=== PATIENT | female | born 1985 | race Caucasian/White ===

== ENCOUNTER 2016-08-31 17:28 | Emergency (ER) | payer OTHER ==
[~2016-08-31] VITALS: Ht 147.3 cm; Wt 59.0 kg
[2016-08-31 17:35] VITALS: BP 120/75
[2016-08-31] MEDS ORDERED: AMOX875T PO (18:17)
[2016-08-31] MEDS ORDERED: HYDR-971 PO (18:17)
--- NOTE | 2016-08-31 18:19 | PHYS DOC ---
General Chief Complaint: DENTAL PROBLEM Stated Complaint: DENTAL PAIN Time Seen by MD: 18:05 Source: patient, old records Exam Limitations: no limitations Problems: History of Present Illness Initial Comments Pt is 30/F to ED c/o dental pain left lower molar. Pt was seen here 2014 for same problem, says she became and after delivery tooth wasn't bothering her. Past few days increasing pain, noticed pus drainage today. No jawbone pain, no fever/chills/myalgias/fatigue/n/v. OTC not helping, states she has appt scheduled 3 days with dentist. Still smoking cigarettes. Timing/Duration: last week Severity: severe Location: dental Prearrival Treatment: over the counter meds Modifying Factors: improves with other Associated Symptoms: tooth pain Allergies: Coded Allergies: No Known Drug Allergies (Unverified , 04/05/15) Past Medical History Medical History: no pertinent history Surgical History: noncontributory Social History Smoker: cigarettes Alcohol: occasionally Drugs: none Constitutional: denies chills, denies diaphoresis, denies fever, denies malaise Ears: denies dizziness, denies pain, denies tinnitus Nose: denies clots, denies congestion Mouth: see HPI Throat: denies pain, denies swelling, denies neck stiffness Respiratory: denies cough, denies shortness of breath Cardiovascular: denies chest pain, denies palpitations Gastrointestinal: denies nausea, denies vomiting Neurological: denies headache, denies numbness, denies paresthesia Physical Exam General Appearance: WD/WN, no apparent distress Eyes: bilateral eye normal inspection, bilateral eye PERRL, bilateral eye EOMI Nose: normal inspection Mouth/Throat: other (L lower molar caries with mild gingival swelling/erythema no bony TTP/purulence) Neck: supple, trachea midline Cardiovascular/Respiratory: normal peripheral pulses, no respiratory distress 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 She expressed agreement/ understanding. Advised to stop smoking Departure Time of Disposition: 18:17 Disposition: 01 HOME, SELF-CARE Diagnosis: L lower molar dental abscess, tobaccoism Condition: GOOD Patient Instructions: Dental Abscess, Smoking Cessation, Tips For Success Additional Instructions: Stop smoking, seek medical assistance if necessary. Listerine mouthwash gargles three times daily after brushing/flossing. OTC ibuprofen for baseline pain. Rx: amoxicillin, norco 5mg #20 Take meds with food. Follow up with dentist in 3 days as previously scheduled. Return to ED with new or changing symptoms. CHARIS VARNER DO August 31, 2016 18:19
[2016-08-31] MEDS ORDERED: HYDROcodone/APAP 7.5/325MG 1 TAB TABLET PO ONE (18:30)
[2016-08-31] MEDS ORDERED: ONDANSETRON ODT 4 MG TAB.RAPDIS PO ONE (18:30)
[2016-08-31] MEDS ORDERED: AMOXICILLIN 500 MG CAPSULE PO ONE (18:30)
== END 2016-08-31 18:35 | disposition home or self-care (01) ==
LOC: ER 17:28
DX: K04.7 Periapical abscess without sinus (principal); F17.210 Nicotine dependence, cigarettes, uncomplicated
CPT/HCPCS: 99284; Q0162

== ENCOUNTER 2016-11-19 16:27 | Emergency (ER) | payer OTHER ==
[~2016-11-19 16:27] MED LIST: AMOX875T PO; HYDR-971 PO
[2016-11-19 16:30] VITALS: BP 124/48
--- NOTE | 2016-11-19 17:19 | PHYS DOC ---
General Chief Complaint: FINGER INJURY Stated Complaint: L MIDDLE FINGER PAIN Time Seen by MD: 17:11 Source: patient Exam Limitations: no limitations Problems: History of Present Illness Initial Comments Patient is a 31-year-old female who comes to the ED complaining of a worker's compensation finger injury. Patient states that immediately prior to ED arrival she was at work putting some money away. She says that she accidentally shot the tip of her left middle finger in the door of the safe. The door mechanism did not catch and it opened immediately however the patient has had severe discomfort at the affected finger. No skin breaks, no bleeding no subungual hematoma she denies numbness tingling or weakness. Patient does have some discomfort radiating proximally along the muscles and tendons. Pain is described as sharp and throbbing 10 out of 10 worse with movement relieved somewhat with rest. No pre-arrival treatment patient is normally healthy and denies daily medications. Onset: just prior to arrival Severity: severe Pain/Injury Location: left 3rd finger Method of Injury: direct blow Modifying Factors: improves with cold therapy, improves with immobilization, worse with jarring, worse with movement, improves with rest Allergies: Coded Allergies: No Known Drug Allergies (Unverified , 04/05/15) Past Medical History Medical History: no pertinent history Surgical History: noncontributory Social History Smoker: non-smoker Alcohol: none Drugs: none Review of Systems Constitutional: denies chills, denies fever Respiratory: denies cough, denies shortness of breath Cardiovascular: denies chest pain, denies palpitations, denies syncope Gastrointestinal: denies diarrhea, denies nausea, denies vomiting Genitourinary: denies dysuria, denies frequency, denies hematuria Musculoskeletal: see HPI Skin: see HPI Psychiatric/Neurological: see HPI Physical Exam General Appearance: WD/WN, moderate distress Neck: non-tender, supple Cardiovascular/Respiratory: normal peripheral pulses, no respiratory distress Back: no CVA tenderness, no vertebral tenderness Hand: bone tenderness, ecchymosis, limited ROM, stiffness, swelling (left third finger distal phalanx: Flexeril and extensor tendon complexes are intact as are collateral ligaments. There is no palpable bony deformity there is diffuse tenderness both bony and soft tissue. Bruising is noted to the soft tissues no large subungual hematoma or nail bed injury noted. Extremity is neurovascularly intact.) Neurologic/Tendon: normal sensation, normal motor functions, normal tendon functions, responds to pain, no evidence tendon injury Psychiatric: alert, oriented x 3 Skin: warm/dry (erythema and mild ecchymosis involving the soft tissues of the distal left third phalanx as above) Orders, Labs, Meds Left hand 3 views: No obvious fracture or dislocation noted. Images and her provided by Dr. Welch. Extremity is neurovascularly intact after splint placement. I discussed the treatment plan patient expressed agreement and understanding. Departure Time of Disposition: 17:17 Disposition: HOME, SELF-CARE Diagnosis: contusion left third finger Condition: GOOD Patient Instructions: Crush Injury, Fingers or Toes, [id number], RICE - Routine Care for Injuries, Kvlx-on-[id number] Additional Instructions: Work restriction: No use left hand until cleared by your doctor. RICE, see handout. Wear the metal finger splint except when bathing until cleared by your doctor. [id number] ibuprofen for baseline discomfort. Prescription: [place] 5 mg quantity 10 (take with food for severe breakthrough discomfort). Follow-up with your doctor in 5-7 days for recheck. Follow-up with your employer regarding Worker's Compensation injury. Return to the ED with new or changing symptoms. CHARIS WELCH DO Nov 19, 2016 17:19
[2016-11-19] MEDS: ONDANSETRON ODT 4 MG TAB.RAPDIS PO ONE (17:32)
[2016-11-19] MEDS: HYDROcodone/APAP 7.5/325MG 1 TAB TABLET PO ONE (17:32)
--- NOTE | 2016-11-19 17:44 | RAD ---
Left hand, 3 views, 11/19/2016: History: Hand injury No fracture or dislocation is identified. The soft tissues are unremarkable. IMPRESSION: No acute bony abnormality is detected.
== END 2016-11-19 17:42 | disposition home or self-care (01) ==
LOC: ER 16:27
DX: S60.032A Contusion of left middle finger without damage to nail, initial encounter (principal); W22.8XXA Striking against or struck by other objects, initial encounter; Y93.89 Activity, other specified; Y92.89 Other specified places as the place of occurrence of the external cause; Y99.8 Other external cause status
CPT/HCPCS: 29130; 73130; 99284; Q0162

== ENCOUNTER 2017-01-15 12:28 | Emergency (ER) | payer OTHER ==
[~2017-01-15] VITALS: Ht 147.3 cm; Wt 59.0 kg
[2017-01-15 12:35] VITALS: BP 117/52
--- NOTE | 2017-01-15 12:59 | PHYS DOC ---
Past History Past Medical History: No Pertinent History Past Surgical History: Cholecystectomy, Other Alcohol Use: None Drug Use: None Adult General Chief Complaint Chief Complaint: LACERATION/AVULSION HPI HPI Patient is a 31 year old female who presents with finger laceration. She accidentally cut her left index finger with a serrated knife while working at [employer]. She had difficulty controlling the bleeding. Right hand is dominant. Last tetanus is unknown. Review of Systems Review of Systems Constitutional: Denies fever or chills HENT: Denies nasal congestion or sore throat Respiratory: Denies cough or shortness of breath Cardiovascular: Denies chest pain GI: Denies abdominal pain, nausea, vomiting Musculoskeletal: Denies back pain or joint pain Integument: Reports laceration Neurologic: Denies headache Current Medications Current Medications Current Medications Medications (Trade) Dose Ordered Sig/Rodolfo Start Time Stop Time Status Last Admin Dose Admin Diphtheria/ Tetanus/Acell Pertussis (Boostrix) 0.5 ml ONCE ONCE 01/15/17 13:00 01/15/17 13:01 01/15/17 12:53 0.5 ML Ondansetron HCl (Zofran Odt) 4 mg 1X ONCE 01/15/17 13:00 01/15/17 13:01 01/15/17 12:53 4 MG Allergies Allergies Allergies Coded Allergies Type Severity Reaction Last Updated Verified No Known Drug Allergies 04/05/15 No Physical Exam Physical Exam Constitutional: Well developed, well nourished, no acute distress, non-toxic appearance. HENT: Normocephalic, atraumatic, bilateral external ears normal, oropharynx moist, nose normal. Eyes: conjunctiva normal, no discharge. Cardiovascular: no edema. Lungs & Thorax: no respiratory distress. Abdomen: nondistended. Skin: superficial laceration as below. Extremities: left index finger with 1 cm very superficial flap laceration to radial/palmar aspect of fingertip, hemostatic. cap refill < 2 sec, sensation intact to fingertip. Neurologic: Alert and oriented X 3 EKG EKG [] Radiology/Procedures Radiology/Procedures [] Course & Med Decision Making Course & Med Decision Making Pertinent Labs and Imaging studies reviewed. (See chart for details) The patient presents with finger laceration which is very superficial. Irrigated by RN. Tetanus updated. She felt nauseated after the wound was irrigated so zofran was administered. RN applied glue & dressing. Recommend wound care, follow up with primary care for additional concerns. Discharged home in stable condition. [] Dragon Disclaimer Dragon Disclaimer This chart was dictated in whole or in part using Voice Recognition software in a busy, high-work load, and often noisy Emergency Department environment. It may contain unintended and wholly unrecognized errors or omissions. Laceration Repair Lac Repair Indication: finger laceration Procedure: The patient was placed in the appropriate position and anesthesia was not required. The area was then irrigated by the RN with a copious amount of normal saline. The laceration was repaired using glue. The wound area was then dressed with gauze. Total repaired wound length: 1 cm. The patient tolerated the procedure well. Complications: none. Departure Departure: Impression: Primary Impression: Superficial laceration of hand Disposition: 01 HOME, SELF-CARE Condition: STABLE Referrals: ELIJAH BEAR APRN (PCP) Patient Instructions: Laceration Care, Adult, [id number] Additional Instructions: You were seen in the emergency department today for finger laceration. It was superficial & did not require stitches. Please keep clean & dry. Apply triple antibiotic ointment. Cover with a band aid if desired. Follow up as needed with primary care for additional concerns. CALI WILHELM MD Jan 15, 2017 12:59
[2017-01-15] MEDS ORDERED: ONDANSETRON ODT 4 MG TAB.RAPDIS PO ONE (13:00)
[2017-01-15] MEDS ORDERED: DIPHTH,PERTUSS(ACELL),TET TOX 0.5 ML DISP.SYRIN. VAX IM ONE (13:00)
== END 2017-01-15 13:30 | disposition home or self-care (01) ==
LOC: ER 12:28
DX: S61.211A Laceration without foreign body of left index finger without damage to nail, initial encounter (principal); W26.0XXA Contact with knife, initial encounter; Y93.89 Activity, other specified; Y99.8 Other external cause status; Y92.89 Other specified places as the place of occurrence of the external cause
CPT/HCPCS: 12001; 90471; 90715; 99283; Q0162

== ENCOUNTER 2019-12-01 15:02 | Emergency (ER) | payer MEDICAID, OTHER ==
[~2019-12-01] VITALS: Ht 147.3 cm; Wt 73.0 kg
[~2019-12-01 15:02] MED LIST changes: +HYDR-3165 PO; -HYDR-971 PO
[2019-12-01 15:10] VITALS: BP 154/99
--- NOTE | 2019-12-01 15:52 | PHYS DOC ---
Past History Past Medical History: Other Additional Past Medical Histor: back pain Past Surgical History: Cholecystectomy, Other Additional Past Surgical Histo: D & C Alcohol Use: None Drug Use: None Adult General Chief Complaint Chief Complaint: ABDOMINAL PAIN HPI HPI Patient is a 34-year-old female who presents for abdominal pain. Onset was earlier this morning when her 4-year-old child accidentally kicked her directly on anterior portion of stomach when patient was trying to dress child. Patient reports vague abdominal pain, denies any vaginal discharge, bleeding or other concerning abnormalities. Nonetheless, patient has a history of 2 prior first trimester spontaneous abortions and because of this, presented to our ER for ultrasound because "I just want to make sure everything is okay". She has not had her first OB appointment yet. Patient found out she was within the past 4 weeks via home urine test. First day last menstrual period was November 23, 2019 which would put her approximately 8 weeks Review of Systems Review of Systems Fourteen body systems of review of systems have been reviewed. See HPI for pertinent positives and negative responses, other glez all other systems are negative, non-pertinent or non-contributory Allergies Allergies Allergies Coded Allergies Type Severity Reaction Last Updated Verified No Known Drug Allergies 04/05/15 No Physical Exam Physical Exam Constitutional: Well developed, well nourished, mild distress, non-toxic appearance. HENT: Normocephalic, atraumatic, bilateral external ears normal, oropharynx moist, no oral exudates, nose normal. Eyes: PERRLA, EOMI, conjunctiva normal, no discharge. Neck: Normal range of motion, no tenderness, supple, no stridor. Cardiovascular: Heart rate regular, sinus rhythm, no murmurs rubs or gallops Lungs & Thorax: Bilateral breath sounds clear to auscultation Abdomen: Bowel sounds normal, soft, no tenderness, no masses, no pulsatile masses. Nonsurgical abdomen, no peritoneal signs Skin: Warm, dry, no erythema, no rash. Back: No tenderness, no CVA tenderness. Extremities: No tenderness, no cyanosis, no clubbing, ROM intact, no edema. Neurologic: Alert and oriented X 3, grossly normal motor & sensory function, no focal deficits noted. Psychologic: Affect normal, judgement normal, anxious mood Current Patient Data Vital Signs Vital Signs Date Time Temp Pulse Resp B/P (MAP) Pulse Ox O2 Delivery O2 Flow Rate FiO2 8/4/20 15:10 98.4 116 16 154/99 (117) 99 Room Air Lab Results Laboratory Tests Test 12/01/19 15:47 POC Urine HCG, Qualitative hcg positive (Negative) EKG EKG [] Radiology/Procedures Radiology/Procedures PROCEDURE: OB <14 WKS W/TV Exam: Ultrasound OB less than 14 weeks Indication: , kicked in stomach Technique: Real-time grayscale and color Doppler images of the pelvis were obtained by the department fabrication machine operator. Comparisons: None FINDINGS: Uterus measures 9.5 x 5.1 x 4.8 cm. Within the uterus there is a 4 mm anechoic cystic structure. No pole or yolk sac is identified. Right ovary measures 2.6 x 1.6 x 1.5 cm. Left ovary measures 3.2 x 2.3 x 1.8 cm. Trace free fluid is noted in the pelvis. IMPRESSION: 1. Question possible gestational sac in the endometrium. No yolk sac or pole identified. An intrauterine is not confirmed. Differential considerations include an early IUP versus a failed IUP. Nonvisualized ectopic with single gestational sac is considered unlikely. 2. Normal sonographic appearance of the ovaries bilaterally. 3. Trace free fluid in the pelvis. Electronically signed by: Lydia Guzman MD (12/01/2019 4:23 PM) [id number] Course & Med Decision Making Course & Med Decision Making Well-appearing, self ambulatory patient was seen on immediate ER arrival Vital signs grossly unremarkable, history and physical non-concerning for emergent pathology Bedside ultrasound by myself yielded no heart tones, discussed this finding could be due to her being too early in to appreciate Formal ultrasound ordered and results of early IUP versus failed IUP discussed. Discussed no further work-up or invasive action required in ER setting Patient reports having good PCP follow-up, reports she is able to see ROOM SERVICE RUNNER within upcoming 7 to 14 days, I feel this is appropriate Discussed this may be an acute presentation of more serious pathology and subsequent return precautions were discussed at length with good understanding All questions and concerns addressed prior to ER departure Patient to follow-up with outpatient PCP or ROOM SERVICE RUNNER for likely repeat ultrasound and serum beta-hCG trending Neto Disclaimer Dragon Disclaimer This electronic medical record was generated, in whole or in part, using a voice recognition dictation system. Departure Departure: Impression: Primary Impression: Abdominal pain during in first trimester Disposition: 01 HOME/RESIDENCE PRIOR TO ADM Condition: STABLE Referrals: KATE GOODE MD (PCP) Patient Instructions: Abdominal Pain During Additional Instructions: As discussed prior to ER departure, please follow-up with your PCP or ROOM SERVICE RUNNER regarding ultrasound results and to follow beta-hCG levels obtained today Your evaluation was not suggestive of any emergent condition requiring medical intervention at this time. However, some abdominal problems make take more time to appear. Therefore, it is important for you to watch for any new symptoms or worsening of your current condition. Please follow up with your primary care physician as needed. If you do not have a primary doctor, you can call your insurance company to find one. If you do not have insurance, you can go to the finance/registration department for more assistance. Return to the Emergency Department if you experience worsening pain, persistent fevers greater than 100.4, recurrent vomiting, blood in vomit, blood in stool, dark tarry stool, chest pain, difficulty breathing, or any other concerning symptoms. Justification of Admission: Justification of Admission: Justification of Admission Dx: N/A PRASANTH HOWARD DO Dec 01, 2019 15:52
--- NOTE | 2019-12-01 16:26 | RAD ---
Exam: Ultrasound OB less than 14 weeks Indication: , kicked in stomach Technique: Real-time grayscale and color Doppler images of the pelvis were obtained by the department flat machine cutter. Comparisons: None FINDINGS: Uterus measures 9.5 x 5.1 x 4.8 cm. Within the uterus there is a 4 mm anechoic cystic structure. No pole or yolk sac is identified. Right ovary measures 2.6 x 1.6 x 1.5 cm. Left ovary measures 3.2 x 2.3 x 1.8 cm. Trace free fluid is noted in the pelvis. IMPRESSION: 1. Question possible gestational sac in the endometrium. No yolk sac or pole identified. An intrauterine is not confirmed. Differential considerations include an early IUP versus a failed IUP. Nonvisualized ectopic with single gestational sac is considered unlikely. 2. Normal sonographic appearance of the ovaries bilaterally. 3. Trace free fluid in the pelvis. Electronically signed by: Lydia Guzman MD (12/01/2019 4:23 PM) [id number]
== END 2019-12-01 16:59 | disposition home or self-care (01) ==
LOC: ER 15:02
DX: O26.891 Other specified pregnancy related conditions, first trimester (principal); R10.9 Unspecified abdominal pain; Z3A.01 Less than 8 weeks gestation of pregnancy; Z90.49 Acquired absence of other specified parts of digestive tract
CPT/HCPCS: 36415; 76801; 76817; 81025; 84702; 99284